=== PATIENT | female | born 1980 | race African-American/Black ===

== ENCOUNTER 2017-03-17 22:43 | Emergency (ER) | payer SELFPAY ==
[~2017-03-17] VITALS: Ht 170.2 cm; Wt 68.0 kg
[2017-03-18] MEDS ORDERED: ACETAMINOPHEN WITH CODEINE 300/30MG TABLET PO ONE
[2017-03-18 00:54] LABS: HCG SCREEN NEGATIVE
[2017-03-18 02:10] VITALS: BP 123/77
== END 2017-03-18 02:23 | disposition home or self-care (01) ==
LOC: ER 22:44
DX: S30.0XXA Contusion of lower back and pelvis, initial encounter (principal); M25.511 Pain in right shoulder; F17.200 Nicotine dependence, unspecified, uncomplicated; R56.9 Unspecified convulsions; Z88.6 Allergy status to analgesic agent; V09.9XXA Pedestrian injured in unspecified transport accident, initial encounter; Y93.89 Activity, other specified; Y92.89 Other specified places as the place of occurrence of the external cause; Y99.8 Other external cause status
CPT/HCPCS: 72170; 73030; 84703; 99284

== ENCOUNTER 2019-05-01 22:53 | Emergency (ER) | payer MEDICAID, OTHER ==
[~2019-05-01] VITALS: Ht 162.6 cm; Wt 98.0 kg
[2019-05-02] MEDS ORDERED: LEVETIRACETAM 500MG PREMIX 100 ML IV ONE (01:45)
[2019-05-02] MEDS ORDERED: ACETAMINOPHEN 500MG TABLET PO ONE (01:45)
[2019-05-02 02:01] LABS: HCG SCREEN NEGATIVE
[2019-05-02 02:05] LABS: BASOPHILS % 0.3 % (0.0-2.0); EOSINOPHILS % 0.8 % (0.0-5.0); HEMATOCRIT. 38.8 % (36.0-48.0); HEMOGLOBIN. 13.1 g/dL (12.0-16.0); LYMPHOCYTES % 23.7 % (20.0-50.0); MEAN CORPUSCULAR HEMOGLOBIN 29.1 pg (28.0-32.0); MEAN PLATELET VOLUME 9.4 fl (7.4-10.4); MONOCYTES % 7.5 % (2.0-8.0); NEUTROPHILS % 67.7 % (40.0-76.0); PLATELET 276 x1000/uL (130-400); RED BLOOD CELL COUNT 4.52 mill/uL (4.2-5.4); RED CELL DISTRIBUTION WIDTH 15.3 % (11.6-14.6)
[2019-05-02 02:14] LABS: PROTHROMBIN TIME 10.3 sec (9.6-11.0)
[2019-05-02 02:19] LABS: CHLORIDE 110 mEq/L (98-107)
[2019-05-02 06:50] VITALS: BP 136/82
== END 2019-05-02 07:00 | disposition home or self-care (01) ==
LOC: ER 22:53
DX: G40.909 Epilepsy, unspecified, not intractable, without status epilepticus (principal); M25.511 Pain in right shoulder; S43.401A Unspecified sprain of right shoulder joint, initial encounter; X58.XXXA Exposure to other specified factors, initial encounter; Y93.9 Activity, unspecified; Y92.89 Other specified places as the place of occurrence of the external cause; Z91.14 Patient's other noncompliance with medication regimen
CPT/HCPCS: 36415; 80053; 84703; 85025; 85610; 96374; 99283; J1953; Z7610

== ENCOUNTER 2019-05-10 10:50 | Emergency (ER) | payer MEDICAID ==
[~2019-05-10] VITALS: Ht 170.2 cm; Wt 98.0 kg
[2019-05-10 10:52] VITALS: BP 108/76
[2019-05-10] MEDS ORDERED: HYDROCODONE/ACETAMINOPHEN 5/325MG TABLET PO ONE (11:30)
== END 2019-05-10 12:35 | disposition home or self-care (01) ==
LOC: ER 10:50
DX: M54.5 Low back pain (principal); G40.909 Epilepsy, unspecified, not intractable, without status epilepticus; Z88.6 Allergy status to analgesic agent; Z88.5 Allergy status to narcotic agent; X50.0XXA Overexertion from strenuous movement or load, initial encounter; Y93.89 Activity, other specified; Y92.488 Other paved roadways as the place of occurrence of the external cause
CPT/HCPCS: 72110; 81025; 99283

== ENCOUNTER 2019-09-12 19:30 | Emergency (ER) | payer MEDICAID ==
[~2019-09-12] VITALS: Ht 170.2 cm; Wt 95.0 kg
[2019-09-12] MEDS ORDERED: ACETAMINOPHEN WITH CODEINE 300/30MG TABLET PO STA (20:56)
[2019-09-12] MEDS ORDERED: LEVETIRACETAM 500MG PREMIX 100 ML IV ONE (21:00)
[2019-09-12 21:18] LABS: BASOPHILS % 0.4 % (0.0-2.0); HEMATOCRIT. 33.7 % (36.0-48.0); HEMOGLOBIN. 10.9 g/dL (12.0-16.0); LYMPHOCYTES % 13.4 % (20.0-50.0); MEAN CORPUSCULAR HEMOGLOBIN 28.1 pg (28.0-32.0); MEAN CORPUSCULAR VOLUME 86.7 fL (81.0-99.0); MEAN PLATELET VOLUME 8.5 fl (7.4-10.4); MONOCYTES % 5.7 % (2.0-8.0); NEUTROPHILS % 80.5 % (40.0-76.0); PLATELET 370 x1000/uL (130-400); RED BLOOD CELL COUNT 3.89 mill/uL (4.2-5.4); RED CELL DISTRIBUTION WIDTH 13.2 % (11.6-14.6)
[2019-09-12 21:22] LABS: CHLORIDE 106 mEq/L (98-107)
[2019-09-12 21:26] LABS: ETHANOL BLOOD < 10 mg/dL
[2019-09-13] MEDS ORDERED: KETOROLAC 15MG/ML VIAL IV ONE
[2019-09-13] MEDS ORDERED: ACETAMINOPHEN WITH CODEINE 300/30MG TABLET PO ONE (00:15)
[2019-09-13 00:26] VITALS: BP 120/61
== END 2019-09-13 00:20 | disposition home or self-care (01) ==
LOC: ER 19:30
DX: G40.909 Epilepsy, unspecified, not intractable, without status epilepticus (principal); Z88.6 Allergy status to analgesic agent; Z88.5 Allergy status to narcotic agent
CPT/HCPCS: 36415; 70450; 80053; 80320; 81025; 85025; 99284; J1953; G0480

== ENCOUNTER 2019-12-14 11:32 | Emergency (ER) | payer MEDICAID ==
[~2019-12-14] VITALS: Ht 162.6 cm; Wt 113.0 kg
[2019-12-14] MEDS ORDERED: MORPHINE SULFATE 10 MG/ML CPJ IM ONE (12:00)
[2019-12-14 14:02] VITALS: BP 115/74
== END 2019-12-14 14:09 | disposition home or self-care (01) ==
LOC: ER 11:45
DX: S40.012A Contusion of left shoulder, initial encounter (principal); S20.212A Contusion of left front wall of thorax, initial encounter; G40.909 Epilepsy, unspecified, not intractable, without status epilepticus; Z88.6 Allergy status to analgesic agent; Z88.5 Allergy status to narcotic agent; V03.10XA Pedestrian on foot injured in collision with car, pick-up truck or van in traffic accident, initial encounter; Y93.89 Activity, other specified; Y92.488 Other paved roadways as the place of occurrence of the external cause
CPT/HCPCS: 71101; 73030; 96372; 99283; J2270; Z7610

== ENCOUNTER 2019-12-20 10:05 | Emergency (ER) | payer MEDICAID ==
[~2019-12-20] VITALS: Ht 162.6 cm; Wt 100.0 kg
[2019-12-20] MEDS ORDERED: ACETAMINOPHEN WITH CODEINE 300/30MG TABLET PO ONE (13:15)
[2019-12-20 13:26] VITALS: BP 138/88
== END 2019-12-20 13:25 | disposition home or self-care (01) ==
LOC: ER 10:05
DX: R04.0 Epistaxis (principal); F17.210 Nicotine dependence, cigarettes, uncomplicated; Z88.6 Allergy status to analgesic agent; Z88.5 Allergy status to narcotic agent
CPT/HCPCS: 87070; 87430; 87804; 99283

== ENCOUNTER 2020-01-26 17:23 | Emergency (ER) | payer MEDICAID ==
[~2020-01-26] VITALS: Ht 162.6 cm; Wt 87.0 kg
[2020-01-26] MEDS ORDERED: ACETAMINOPHEN 500MG TABLET PO ONE (23:15)
[2020-01-26] MEDS ORDERED: LEVETIRACETAM 500MG TABLET PO ONE (23:15)
[2020-01-26 23:33] VITALS: BP 138/64
[2020-01-27] MEDS ORDERED: GABAPENTIN 300MG CAPSULE PO SCH (06:00)
== END 2020-01-26 23:30 | disposition home or self-care (01) ==
LOC: ER 17:23
DX: R51 Headache (principal); Z88.6 Allergy status to analgesic agent
CPT/HCPCS: 99283